=== PATIENT | female | born 1960 | race Caucasian/White ===

== ENCOUNTER 2020-06-08 21:39 | Emergency (ER) | payer BC ==
[2020-06-08] MEDS ORDERED: Bacitracin Oint 1 GM U/D Packet TOP ONE (22:03)
[2020-06-08] MEDS ORDERED: Lidocaine 1% with EPINEPHrine 1:100,000 50 ML MDV SUBCUT STA (22:03)
[2020-06-08 22:07] VITALS: BP 147/95; PULSE 71
--- NOTE | 2020-06-08 22:14 | EDM.PDOC ---
ED HPI GENERAL MEDICAL PROBLEM - General Chief Complaint: Bite:Animal, Insect Stated Complaint: DOG BITE Time Seen by Provider: 06/08/20 22:11 Source of Information: Reports: Patient, Family, RN Notes Reviewed History Limitations: Reports: No Limitations - History of Present Illness INITIAL COMMENTS - FREE TEXT/NARRATIVE: 59-year-old female presents emergency department day with a dog bite to her left arm this was her own dog all his shots are up-to-date the laceration is on the anterior surface of the forearm no functional complaints - Related Data Allergies Allergy/AdvReac Type Severity Reaction Status Date / Time levofloxacin Allergy Facial Verified 06/08/20 21:54 Swelling shellfish derived Allergy Airway Verified 07/02/15 21:53 Tightness Home Meds: Home Meds Aspirin 1 tab PO DAILY 06/08/20 [History] Hydrocodone/Acetaminophen [Hydrocodon-Acetaminoph 7.5-325] 1 tab PO Q4HR PRN 06/08/20 [History] Methylphenidate [Ritalin] 1 tab PO TID PRN 06/08/20 [History] Metoprolol Succinate 1 tab PO DAILY 06/08/20 [History] Sertraline [Zoloft] 1 tab PO DAILY 06/08/20 [History] Zolpidem Tartrate 1 tab PO BEDTIME 06/08/20 [History] amLODIPine [Norvasc] 1 tab PO DAILY 06/08/20 [History] atorvaSTATin [Lipitor] 1 tab PO BEDTIME 06/08/20 [History] buPROPion [buPROPion XL] 2 tab PO DAILY 06/08/20 [History] Past Medical History Cardiovascular History: Reports: High Cholesterol, Hypertension, OR Endocrine/Metabolic History: Reports: Diabetes Mellitus, Type 3c - Past Surgical History GI Surgical History: Reports: Cholecystectomy, Small Bowel Female Surgical History: Reports: Hysterectomy Social & Family History - Tobacco Use Tobacco Use Status *Q: Never Tobacco User ED ROS GENERAL - Review of Systems Review Of Systems: See Below Constitutional: Reports: No Symptoms Skin: Reports: Wound ED EXAM, ANIMAL BITE - Physical Exam Exam: See Below Text/Narrative:: Examination of the wound is approximately 5 cm completely through the dermis linear into the subcutaneous tissue no muscle involvement, radial pulses +2 full range of motion of all digits Exam Limited By: No Limitations General Appearance: Alert, WD/WN, No Apparent Distress ED ANIMAL BITE PROCEDURES - Laceration/Wound Repair Left Arm Lac/Wound Length In cm: 5 Appearance: Subcutaneous, Linear Distal NVT: Neuro & Vascular Intact, No Tendon Injury Anesthetic Type: Local Local Anesthesia - Lidocaine (Xylocaine): 1% with EPI Local Anesthetic Volume: 3cc Skin Prep: Saline Saline Irrigation (cc's): 60 Exploration/Debridement/Repair: Wound Explored, In a Bloodless Field, Explored to Base Closed With: Sutures Suture Size: 4-0 # of Sutures: 1 Suture Type: Interrupted Suture Size: 3-0 # of Sutures: 3 Repaired With: Vicryl Sterile Dressing Applied: Nurse Tetanus Status Addressed: Yes Complications: No Course - Vital Signs Last Recorded V/S: Last Vital Signs Temp 96.9 F 06/08/20 22:11 Pulse 71 06/08/20 22:11 Resp 16 06/08/20 22:11 BP 147/95 H 06/08/20 22:11 Pulse Ox 94 L 06/08/20 22:11 - Orders/Labs/Meds Meds: Medications Discontinued Medications Generic Name Dose Route Start Last Admin Trade Name Goyo PRN Reason Stop Dose Admin Bacitracin 1 dose 06/08/20 22:03 06/08/20 22:16 Bacitracin Oint 1 Gm U/D Packet TOP 06/08/20 22:04 1 dose ONETIME ONE Administration Lidocaine/Epinephrine 20 ml 06/08/20 22:03 06/08/20 22:16 Lidocaine 1% With Epinephrine 1:100,000 50 Ml Mdv SUBCUT 06/08/20 22:04 20 ml NOW STA Administration Departure - Departure Time of Disposition: 22:40 Disposition: Home, Self-Care 01 Condition: Fair Clinical Impression: Laceration of left forearm Qualifiers: Encounter type: initial encounter Qualified Code(s): S51.812A - Laceration without foreign body of left forearm, initial encounter - Discharge Information Instructions: Laceration Care, Adult, [id number] Referrals: PCP,None [Primary Care Provider] - Forms: ED Department Discharge Additional Instructions: Suture removal in 10 days, take full course of antibiotics,, return to the emergency department or follow-up with primary care for suture removal Sepsis Event Note (ED) - Focused Exam Vital Signs: Vital Signs Temp Pulse Resp BP Pulse Ox 06/08/20 22:11 96.9 F 71 16 147/95 H 94 L 06/08/20 21:50 96.9 F 71 16 147/95 H 94 L - Assessment/Plan Plan: Assessment Acuity = acute Site and laterality = 5 cm laceration left arm Etiology = dog bite Manifestations = none Location of injury = Home Lab values = none Plan Suture removal in 10 days, placed on antibiotics of Augmentin 875 p.o. twice da yaquelin x10 days follow-up with primary care return to the clinic for suture removal This note was dictated using [employer] voice recognition software please call with any questions on syntax or grammar.
== END 2020-06-08 23:05 | disposition home or self-care (01) ==
LOC: JP.ED 21:39
DX: S51.812A Laceration without foreign body of left forearm, initial encounter (principal); E78.00 Pure hypercholesterolemia, unspecified; I10 Essential (primary) hypertension; I25.2 Old myocardial infarction; E11.9 Type 2 diabetes mellitus without complications; Z88.1 Allergy status to other antibiotic agents; Z91.013 Allergy to seafood; Z79.82 Long term (current) use of aspirin; W54.0XXA Bitten by dog, initial encounter
CPT/HCPCS: 12002; 99282; 99283-25